=== PATIENT | female | born 1980 | race Caucasian/White ===

== ENCOUNTER 2018-12-29 13:41 | Outpatient (CLI) | payer OTHER ==
--- NOTE | 2018-12-29 15:07 | MMO ---
Bilateral MAMMO Bilat Diag [facility]. CLINICAL HISTORY: Patient is 38 years old and is seen for diagnostic exam. The patient has the following family history of breast cancer: mother, at age 52 and maternal aunt. The patient has no personal history of cancer. The patient has a history of right Ultrasound Guided Core Biopsy in 2014 - benign. VIEWS: The views performed were: bilateral craniocaudal with tomosynthesis; bilateral mediolateral oblique with tomosynthesis; and bilateral mediolateral. FILMS COMPARED: The present examination has been compared to a prior imaging study performed at [facility] on 12/29/2018. MAMMOGRAM FINDINGS: The breasts are heterogeneously dense, which could obscure a lesion on mammography. Finding 1: There are no mammographic or sonographic abnormalities in the area of palpable concern. The patient is referred back to her clinician. Negative imaging findings should not preclude biopsy if clinical findings are suspicious. Finding 2: There is an equal density, oval mass measuring 9 millimeters with circumscribed margins seen in the right breast at 12 o'clock. Finding 3: There is an equal density, oval mass measuring 8 millimeters with circumscribed margins seen in the left breast at 12 o'clock. IMPRESSION: FINDING 1: THERE ARE NO MAMMOGRAPHIC ABNORMALITIES IN THE AREA OF PALPABLE CONCERN. THE PATIENT IS REFERRED BACK TO HER CLINICIAN. NEGATIVE IMAGING FINDINGS SHOULD NOT PRECLUDE BIOPSY IF CLINICAL FINDINGS ARE SUSPICIOUS. ANY DECISION TO BIOPSY SHOULD BE BASED ON CLINICAL ASSESSMENT. FINDING 2: MASS IN THE RIGHT BREAST REQUIRES ADDITIONAL EVALUATION. OLD FILMS ARE REQUIRED FOR COMPARISON. A SUPPLEMENTAL REPORT WILL BE GENERATED WHEN THESE ARE OBTAINED. IF THESE ARE NOT RECEIVED, ADDITIONAL VIEWS AND/OR ULTRASOUND IS RECOMMENDED. FINDING 3: MASS IN THE LEFT BREAST REQUIRES ADDITIONAL EVALUATION. OLD FILMS ARE REQUIRED FOR COMPARISON. A SUPPLEMENTAL REPORT WILL BE GENERATED WHEN THESE ARE OBTAINED. IF THESE ARE NOT RECEIVED, ADDITIONAL VIEWS AND/OR ULTRASOUND IS RECOMMENDED. THE RESULTS OF THIS EXAM WERE SENT TO THE PATIENT. ACR BI-RADS Category 0 - Incomplete: Need Prior Mammograms for Comparison MAMMOGRAPHY NOTE: 1. A negative mammogram report should not delay a biopsy if a dominant of clinically suspicious mass is present. 2. Approximately 10% to 15% of breast cancers are not detected by mammography. 3. Adenosis and dense breasts may obscure an underlying neoplasm.
--- NOTE | 2018-12-29 16:02 | ULT ---
RIGHT BREAST ULTRASOUND: DATE: 12/29/2018. PROVIDED CLINICAL HISTORY: Right breast palpable abnormality, right breast mass. FINDINGS: Limited sonographic interrogation was performed of the right breast at the 9 o'clock position, demons trating a normal sonographic appearance to the breast tissue in this region. Limited sonographic interrogation was performed of the 12 o'clock position of the right breast, demon strating a well-circumscribed, smoothly marginated hypoechoic mass measuring about 9 mm at the 12 o'c lock position. This demonstrates no posterior shadowing. A similar lesion is seen within the left b reast. IMPRESSION: 1. No sonographic or mammographic abnormalities are evident in the right breast to correlate with e reported palpable abnormality. Negative imaging findings should not preclude further evaluation of a clinically suspicious area. The patient is referred back to her clinician regarding this palpable finding. 2. The patient reports prior imaging, which is not currently available. Prior imaging is necessary for complete evaluation of the 12 o'clock nodule. 3. BIRADS category 0 - incomplete, needs additional imaging evaluation. Correlation with prior exam inations is necessary and an addendum to this report will be generated upon receipt of those images. POS: OFF
--- NOTE | 2018-12-29 16:15 | ULT ---
LIMITED LEFT BREAST ULTRASOUND: Date: 12-29-18 Provided Clinical History: Abnormal mammogram. FINDINGS: Limited sonographic interrogation was performed of the left breast at the 12 o'clock position. There is a 9 mm circumscribed hypoechoic oval mass demonstrating smooth margins and no posterior shadowing. A similar lesion is present within the right breast. IMPRESSION: 1. Solid nodule at the 10 o'clock position of the left breast. The patient reports prior imaging, whi ch is not currently available. Such imaging is necessary to assign a final BIRADS category. BIRADS 0 - incomplete. Needs additional imaging evaluation. Correlation with prior imaging is recomme nded. An addendum to this report will be issued upon receipt of prior images. POS: OFF
== END 2018-12-29 13:42 | disposition home or self-care (01) ==
LOC: BICMAMMO 13:41
PROVIDERS: ATTEND Nurse Practitioner Family
DX: N63.10 Unspecified lump in the right breast, unspecified quadrant (principal); Z80.3 Family history of malignant neoplasm of breast; N63.20 Unspecified lump in the left breast, unspecified quadrant
CPT/HCPCS: 77066; G0279

== ENCOUNTER 2019-08-07 08:01 | Outpatient (CLI) | payer OTHER ==
--- NOTE | 2019-08-07 11:00 | ULT ---
TRANSABDOMINAL AND TRANSVAGINAL PELVIC ULTRASOUND WITH GRAYSCALE AND COLORFLOW AND SPECTRAL DOPPLER I MAGING: HISTORY: UTI and pelvic pain. FINDINGS: The uterus measures 8.3 x 5 x 4.7 cm without focal mass or endometrial fluid. The endometrium measure s 4 mm in thickness. The right ovary measures 2.7 x 2.3 x 2.1 cm and the left ovary measures 3.1 x 2.8 x 2.2 cm. Flow is d emonstrated to both ovaries. There is a small amount of free fluid in the posterior cul-de-sac. There is a 1 cm cyst in the right ovary and a 1.1 cm cyst in the left ovary. IMPRESSION: Small amount of free fluid in the posterior cul-de-sac, otherwise unremarkable examination. POS: ALLI
== END 2019-08-07 08:02 | disposition home or self-care (01) ==
LOC: BICULT 08:01
PROVIDERS: ATTEND Nurse Practitioner Family
DX: N39.0 Urinary tract infection, site not specified (principal); R10.2 Pelvic and perineal pain; R30.0 Dysuria
CPT/HCPCS: 76856

== ENCOUNTER 2020-05-06 09:57 | Outpatient (CLI) | payer BC ==
--- NOTE | 2020-05-06 11:17 | MMO ---
Bilateral MAMMO Bilat Diag [facility]. CLINICAL HISTORY: Patient is 40 years old and is seen for diagnostic exam and lump or thickening in both breasts. The patient has the following family history of breast cancer: mother, at age 52 and maternal aunt. The patient has no personal history of cancer. The patient has a history of right Ultrasound Guided Core Biopsy in 2014 - benign. VIEWS: The views performed were: bilateral craniocaudal with tomosynthesis; bilateral mediolateral oblique with tomosynthesis; and bilateral mediolateral with tomosynthesis. FILMS COMPARED: The present examination has been compared to prior imaging studies performed at [facility] on 12/29/2018 and 05/06/2020. This study has been interpreted with the assistance of computer-aided detection. MAMMOGRAM FINDINGS: The breasts are heterogeneously dense, which could obscure a lesion on mammography. There are stable round masses with circumscribed margins seen in both breasts. These appear to either represent cysts or fibroadenomas on ultrasound. There are no suspicious masses, suspicious calcifications, or new areas of architectural distortion. IMPRESSION: THERE IS NO MAMMOGRAPHIC EVIDENCE OF MALIGNANCY. A ROUTINE FOLLOW-UP MAMMOGRAM IN 1 YEAR IS RECOMMENDED. THE RESULTS OF THIS EXAM WERE SENT TO THE PATIENT. ACR BI-RADS Category 2 - Benign finding MAMMOGRAPHY NOTE: 1. A negative mammogram report should not delay a biopsy if a dominant of clinically suspicious mass is present. 2. Approximately 10% to 15% of breast cancers are not detected by mammography. 3. Adenosis and dense breasts may obscure an underlying neoplasm. Reported by: DARIANA THOMASON MD Electonically Signed: [id number]
--- NOTE | 2020-05-06 11:26 | ULT ---
US Breast Limited Rt: 05/06/2020 12:00 AM CLINICAL INDICATION: Palpable bilateral breast masses. COMPARISON: Mammogram 05/06/2020 and mammogram and ultrasound 12/29/2018 TECHNIQUE: Multiplanar grayscale and color Doppler images were obtained of the right breast. FINDINGS: No abnormality is seen at the area of palpable abnormality in the 9:00 position in the right breast. There is a stable anechoic cyst in the right breast at the 11:00 position measuring 3 mm in size. A second more superficial cyst is seen at the 1:00 position of the right breast measuring 5 mm in size. At 8:00 position of the right breast, there is a well-circumscribed hypoechoic mass measuring 1.1 cm in greatest dimension with increased through transmission. This most likely represents a fibroaden dima. No suspicious mass is seen. No suspicious shadowing is seen. IMPRESSION: BI-RADS Category 2-benign findings.
--- NOTE | 2020-05-06 11:28 | ULT ---
US Breast Limited Lt: 05/06/2020 12:00 AM CLINICAL INDICATION: Palpable bilateral breast masses. COMPARISON: Mammogram 05/06/2020; mammogram and ultrasound 12/29/2018 TECHNIQUE: Multiplanar grayscale and color Doppler images were obtained of the breast. FINDINGS: There is a stable hypoechoic well-circumscribed mass at the 12:00 position of the right breast measur ing 9 to 10 mm in greatest dimension. This most likely represents a fibroadenoma. No suspicious mass is seen. No suspicious shadowing is seen. IMPRESSION: BI-RADS Category 2-benign findings.
== END 2020-05-06 09:58 | disposition home or self-care (01) ==
LOC: BICMAMMO 09:57
PROVIDERS: ATTEND Nurse Practitioner Family
DX: N63.20 Unspecified lump in the left breast, unspecified quadrant (principal); N63.10 Unspecified lump in the right breast, unspecified quadrant; Z87.898 Personal history of other specified conditions; Z80.3 Family history of malignant neoplasm of breast
CPT/HCPCS: 77066; G0279

== ENCOUNTER 2025-08-20 08:05 | Outpatient (CLI) | payer BC | END 2025-08-20 08:06 | disposition home or self-care (01) | LOC: ULT 08:05 | PROVIDERS: ATTEND Internal Medicine Gastroenterology | DX: R10.13 Epigastric pain (principal); R10.12 Left upper quadrant pain; K60.30 Anal fistula, unspecified; Z79.1 Long term (current) use of non-steroidal anti-inflammatories (NSAID) | CPT/HCPCS: 76705 ==